=== PATIENT | female | born 1965 ===

== ENCOUNTER 2017-09-12 13:56 | Emergency (ER) | payer MEDICAID ==
[2017-09-12 14:55] VITALS: BMI 27.4
[2017-09-12] MEDS ORDERED: Iohexol 240 (50 ml) PO STA (15:25)
[2017-09-12] MEDS ORDERED: Sodium Chloride 0.9% 1,000 ML IV STA (15:25)
--- NOTE | 2017-09-12 15:40 | C.PDOC ---
History Of Present Illness 52 year old female presents to the ED for evaluation of generalized abdominal pain which began 3 days ago. Patient denies fever, chills, nausea, vomiting and diarrhea. Time Seen by Provider: 09/12/17 15:21 Chief Complaint (Nursing): Abdominal Pain History Per: Patient History/Exam Limitations: no limitations Onset/Duration Of Symptoms: Days (3) Current Symptoms Are (Timing): Still Present Location Of Pain/Discomfort: Diffuse Radiation Of Pain To:: None Quality Of Discomfort: "Pain" Associated Symptoms: denies: Fever, Chills, Nausea, Vomiting, Diarrhea Additional History Per: Patient Abnormal Vaginal Bleeding: No Past Medical History Reviewed: Historical Data, Nursing Documentation, Vital Signs Vital Signs: Last Vital Signs Temp 98.0 F 09/12/17 18:02 Pulse 58 L 09/12/17 18:02 Resp 18 09/12/17 18:02 BP 151/78 H 09/12/17 18:02 Pulse Ox 100 09/12/17 18:02 - Medical History PMH: No Chronic Diseases Surgical History: No Surg Hx Family History: States: Unknown Family Hx - Social History Hx Alcohol Use: Yes Hx Substance Use: No Review Of Systems Constitutional: Negative for: Fever, Chills Gastrointestinal: Positive for: Abdominal Pain (generalized ). Negative for: Nausea, Vomiting, Diarrhea Physical Exam - Physical Exam Appears: Non-toxic, No Acute Distress Skin: Normal Color, Warm, Dry Head: Atraumatic, Normacephalic Eye(s): bilateral: Normal Inspection Oral Mucosa: Moist Neck: Supple Chest: Symmetrical, No Deformity, No Tenderness Cardiovascular: Rhythm Regular, No Murmur Respiratory: Normal Breath Sounds, No Rales, No Rhonchi, No Wheezing Gastrointestinal/Abdominal: Soft, Tenderness (to epigastric and bilateral lower quadrants ), No Guarding, No Rebound Extremity: Normal ROM, Capillary Refill (less than 2 seconds ) Neurological/Psych: Oriented x3, Normal Speech, Normal Cognition ED Course And Treatment - Laboratory Results Result Diagrams: 09/12/17 15:44 09/12/17 15:44 O2 Sat by Pulse Oximetry: 96 (on RA) Pulse Ox Interpretation: Normal - CT Scan/US CT abdomen/pelvis Other Rad Studies (CT/US): Read By Radiologist, Radiology Report Reviewed CT/US Interpretation: Accession No. : [id number]. Patient Name / ID : REI ARRINGTON / [id number]. Exam Date : 09/12/2017 17:25:50 ( Approved ) . Study Comment : Sex / Age : F / 52Y. Creator : Sherry Mcnally. Dictator : Priscilla Mayorga MD. Racing Secretary : Airborne And [employer] Delivery Specialist : Priscilla Mayorga MD. Approver2 : Report Date : 09/12/2017 17:30:35. My Comment : . PROCEDURE: CT Abdomen and Pelvis with oral and IV contrast. HISTORY: generalized abd pain, menopause x 2 yrs. COMPARISON: None available. TECHNIQUE: Contiguous axial images of the abdomen and pelvis. Oral and IV contrast was administered. Coronal and Sagittal reformats generated and reviewed. Contrast dose: None available. Radiation dose: Total exam DLP = 748.83 mGy-cm. This CT exam was performed using one or more of the following dose reduction techniques: Automated exposure control, adjustment of the mA and/or kV according to patient size, and/or use of iterative reconstruction technique. FINDINGS: LOWER THORAX : No visible consolidation, pleural effusion, or pneumothorax. LIVER: Unremarkable. GALLBLADDER AND BILE DUCTS: Unremarkable. PANCREAS: Unremarkable. SPLEEN: Unremarkable. ADRENALS: Unremarkable. KIDNEYS AND URETERS: The kidneys enhance symmetrically. No hydronephrosis or obstructing renal calculus. BLADDER: Mildly thick-walled urinary bladder. REPRODUCTIVE: Uterus is present. APPENDIX: The appendix appears within normal limits of caliber. No secondary signs of acute appendicitis. BOWEL: The stomach is nondistended. The bowel loops appear within normal limits of caliber without evidence of intestinal obstruction. PERITONEUM: No significant free fluid. No definite free air. LYMPH NODES: No bulky lymphadenopathy identified. Sub cm inguinal adenopathy. VASCULATURE: No aortic aneurysm. BONES: Mild degenerative changes of the spine. OTHER FINDINGS: None. IMPRESSION: Mildly thick-walled urinary bladder. Recommend correlation with urinalysis. Progress Note: Bloodwork, urinalysis, and CT A/P were ordered and reviewed. Pepcid IVP and IV Fluids administered. UA and CT are consistant with UTI/ Cystitis. Macrobid po was given. Patient to be d.c home with PMD follow up. Disposition - Disposition Referrals: Priscilla Nicholas MD [Medical Doctor] - Disposition: HOME/ ROUTINE Disposition Time: 18:04 Condition: STABLE Additional Instructions: Follow up with PMD within 1-2 days. Return to ED if feel worse. Prescriptions: Nitrofurantoin Macrocrystals [Macrobid] 1 cap PO BID #14 cap Instructions: Urinary Tract Infection in Women (ED) Forms: [employer] (Nicaraguan) Print Language: YAKUT - Clinical Impression Clinical Impression: UTI (urinary tract infection) - PA / UMBRELLA CUTTER / Resident Statement MD/DO has reviewed & agrees with the documentation as recorded. - Scribe Statement The provider has reviewed the documentation as recorded by the Scribe (Jessica Donahue) All medical record entries made by the Scribe were at my direction and personally dictated by me. I have reviewed the chart and agree that the record accurately reflects my personal performance of the history, physical exam, medical decision making, and the department course for this patient. I have also personally directed, reviewed, and agree with the discharge instructions and disposition.
[2017-09-12 15:48] LABS: BASO % 0.3 % (0.0-2.0); EOS # 0.1 K/uL (0.0-0.7); HEMOGLOBIN 11.5 g/dL (11.0-16.0); LYMPH # 1.7 K/uL (1.0-4.3); LYMPH % 23.2 % (20.0-40.0); MEAN CELL VOLUME 72.1 fL (81.0-99.0); MEAN CORPUSCULAR HEMOGLOBIN 23.2 pg (27.0-31.0); MEAN CORPUSCULAR HGB CONC 32.1 g/dL (33.0-37.0); MEAN PLATELET VOLUME 8.1 fL (7.2-11.7); MONO # 0.6 K/uL (0.0-0.8); MONO % 7.6 % (0.0-10.0); NEUT % 67.9 % (50.0-75.0); RBC 4.97 Mil/uL (3.80-5.20); RED CELL DISTRIBUTION WIDTH 17.7 % (11.5-14.5); WHITE BLOOD COUNT 7.4 K/uL (4.8-10.8)
[2017-09-12] MEDS ORDERED: Iohexol 240 (50 ml) ONE (15:52)
[2017-09-12] MEDS ORDERED: Sodium Chloride 0.9% 1,000 ML ONE (15:52)
[2017-09-12 16:02] LABS: ALB/GLOB RATIO 1.2 (1.0-2.1); ALBUMIN 4.2 g/dL (3.5-5.0); ALT/SGPT 22 U/L (9-52); AMYLASE 55 U/L (30-110); AST/SGOT 31 U/L (14-36); BLOOD UREA NITROGEN 6 mg/dL (7-17); CALCIUM 8.9 mg/dl (8.6-10.4); GFR AFRICAN-AMERICAN > 60; GFR NON-AFRICAN AMERICAN > 60; LIPASE 86 U/L (23-300)
[2017-09-12] MEDS ORDERED: Potassium Chloride 20 mEq/15 ml LIQ UD PO STA (16:16)
[2017-09-12 16:20] LABS: SQUAMOUS EPITHIAL 1 /hpf (0-5); URINE BILIRUBIN NEGATIVE (NEGATIVE); URINE BLOOD NEGATIVE (NEGATIVE); URINE CLARITY Hazy (Clear); URINE COLOR Yellow (YELLOW); URINE GLUCOSE (UA) NORMAL (Normal); URINE LEUKOCYTE ESTERASE 3+ Leu/uL (Negative); URINE NITRATE NEGATIVE (NEGATIVE); URINE PROTEIN 1+ mg/dL (NEGATIVE); URINE UROBILINOGEN NORMAL mg/dL (0.2-1.0)
[2017-09-12] MEDS ORDERED: Potassium Chloride 20 mEq ER Tab PO ONE (16:48)
[2017-09-12] MEDS ORDERED: Iodixanol 320 MG/ML 100 ML BOTTLE IV ONE (17:08)
--- NOTE | 2017-09-12 17:42 | CT ---
PROCEDURE: CT Abdomen and Pelvis with oral and IV contrast. HISTORY: generalized abd pain, menopause x 2 yrs COMPARISON: None available. TECHNIQUE: Contiguous axial images of the abdomen and pelvis. Oral and IV contrast was administered. Coronal and Sagittal reformats generated and reviewed. Contrast dose: None available Radiation dose: Total exam DLP = 748.83 mGy-cm. This CT exam was performed using one or more of the following dose reduction techniques: Automated exposure control, adjustment of the mA and/or kV according to patient size, and/or use of iterative reconstruction technique. FINDINGS: LOWER THORAX: No visible consolidation, pleural effusion, or pneumothorax. LIVER: Unremarkable. GALLBLADDER AND BILE DUCTS: Unremarkable. PANCREAS: Unremarkable. SPLEEN: Unremarkable. ADRENALS: Unremarkable. KIDNEYS AND URETERS: The kidneys enhance symmetrically. No hydronephrosis or obstructing renal calculus. BLADDER: Mildly thick-walled urinary bladder. REPRODUCTIVE: Uterus is present. APPENDIX: The appendix appears within normal limits of caliber. No secondary signs of acute appendicitis. BOWEL: The stomach is nondistended. The bowel loops appear within normal limits of caliber without evidence of intestinal obstruction. PERITONEUM: No significant free fluid. No definite free air. LYMPH NODES: No bulky lymphadenopathy identified. Sub cm inguinal adenopathy. VASCULATURE: No aortic aneurysm. BONES: Mild degenerative changes of the spine. OTHER FINDINGS: None. IMPRESSION: Mildly thick-walled urinary bladder. Recommend correlation with urinalysis.
[2017-09-12 18:04] VITALS: BP 151/78; PULSE 58; RESP 18; TEMP 98
[2017-09-12 18:06] VITALS: O2SAT 96
== END 2017-09-12 18:29 | disposition home or self-care (01) ==
LOC: C.ER 13:56
DX: N39.0 Urinary tract infection, site not specified (principal)
CPT/HCPCS: 74177; 80053; 81001; 82150; 83690; 85025; 96361; 96374; 99284; J7040; Q9966; Q9967